=== PATIENT | male | born 1975 | race African-American/Black ===

== ENCOUNTER 2025-06-24 10:29 | Emergency (ER) | payer SELFPAY ==
[~2025-06-24] VITALS: Ht 180.3 cm; Wt 68.0 kg
[2025-06-24 10:31] VITALS: O2SAT 99
[2025-06-24] MEDS: SODIUM CHLORIDE 0.9% 1,000 ML IV ONE (11:14)
[2025-06-24] MEDS: MORPHINE SULFATE 4 MG/ML INJ (FOR IV/IM USE) IV ONE (11:14)
[2025-06-24] MEDS: LORAZEPAM 2MG/ML UD SYRINGE IV NR (11:15)
[2025-06-24] MEDS: KETOROLAC 15MG/ML VIAL IV ONE (11:15)
[2025-06-24 11:43] LABS: BASOPHILS % 0.9 % (0.0-2.0); EOSINOPHILS % 2.1 % (0.0-5.0); HEMATOCRIT. 38.7 % (42.0-52.0); HEMOGLOBIN. 12.7 g/dL (14.0-18.0); LYMPHOCYTES % 20.1 % (20.0-50.0); MEAN PLATELET VOLUME 7.9 fl (7.4-10.4); MONOCYTES % 7.5 % (2.0-8.0); NEUTROPHILS % 69.4 % (40.0-76.0); PLATELET 439 x1000/uL (130-400); RED BLOOD CELL COUNT 4.30 mill/uL (4.7-6.1); RED CELL DISTRIBUTION WIDTH 13.5 % (11.6-14.6)
[2025-06-24 11:56] LABS: TROPONIN I HIGH SENSITIVITY < 4 ng/L (3.0-53)
[2025-06-24 11:57] LABS: CREATININE 0.8 mg/dL (0.6-1.3); UREA NITROGEN BLOOD 8 mg/dL (9-23)
[2025-06-24 11:59] LABS: ASPARTATE AMINOTRANSFERASE 18 IU/L (<34)
[2025-06-24 12:00] LABS: BILIRUBIN DIRECT 0.2 mg/dL (<=3.0); BILIRUBIN TOTAL 0.7 mg/dL (0.1-1.0); PROTEIN TOTAL 7.2 g/dL (6.0-8.3)
[2025-06-24 12:10] LABS: INR 1.0
[2025-06-24] MEDS ORDERED: NA P133E RC (13:21)
[2025-06-24] MEDS ORDERED: POLY17PO3 MT (13:21)
[2025-06-24] MEDS: POLYETHYLENE GLYCOL 3350 (17GM) 1 DOSE PACK PO ONE (14:08)
[2025-06-24 14:09] VITALS: BP 142/64; PULSE 75; RESP 18; TEMP 36.4; O2SAT 99
== END 2025-06-24 14:13 | disposition home or self-care (01) ==
LOC: ER 11:02 → CMPBEDREQ 14:17
DX: K56.41 Fecal impaction (principal); F20.9 Schizophrenia, unspecified; F31.9 Bipolar disorder, unspecified; J45.909 Unspecified asthma, uncomplicated; R06.02 Shortness of breath
CPT/HCPCS: 80076; 80048; 80320; 83880; 83605; 83690; 83735; 85025; 85610; 85730; 84484; 36415; 74176; 96361; 96374; 96375; 99285; Z7610; J1885; J2060; J2270; J7030; G0480